=== PATIENT | male | born 1965 | race Caucasian/White ===

== ENCOUNTER → 2016-09-01 | Outpatient (CLI) | payer BC | LOC: RAD 07:33 | PROVIDERS: ATTEND Otolaryngology | DX: K22.5 Diverticulum of esophagus, acquired (principal); K44.9 Diaphragmatic hernia without obstruction or gangrene | CPT/HCPCS: 74210 ==

== ENCOUNTER → 2017-10-29 | Outpatient (CLI) | payer BC ==
--- NOTE | 2017-10-29 16:18 | RADIOLOGY REPORT (SQ) ---
EXAM DESCRIPTION: VENOUS BILATERAL LOWER COMPLETED DATE/TIME: 10/29/2017 3:25 pm REASON FOR STUDY: BLE EDEMA R60.9 EDEMA, UNSPECIFIED COMPARISON: None. TECHNIQUE: Dynamic and static anne scale and color images acquired of both lower extremity venous sy stems. Selected spectral images acquired with additional compression and augmentation maneuvers. Imag es stored on PACS. LIMITATIONS: None. FINDINGS: RIGHT LEG COMMON FEMORAL AND FEMORAL: Normal phasicity, compression and augmentation. No visualized echogenic m aterial on anne scale. No defects on color images. POPLITEAL: Normal compression and augmentation. No visualized echogenic material on anne scale. No de fects on color images. CALF VESSELS: Normal compression and augmentation. No visualized echogenic material on anne scale. No defects on color image. GSV AND SSV: Normal compression. No visualized echogenic material on anne scale. No defects on color images. ANY DEEP VENOUS INSUFFICIENCY: Not evaluated. ANY EVIDENCE OF POPLITEAL CYST: No. OTHER: No other significant finding. LEFT LEG COMMON FEMORAL AND FEMORAL: Normal phasicity, compression and augmentation. No visualized echogenic m aterial on anne scale. No defects on color images. POPLITEAL: Normal compression and augmentation. No visualized echogenic material on anne scale. No de fects on color images. CALF VESSELS: Normal compression and augmentation. No visualized echogenic material on anne scale. No defects on color images. GSV AND SSV: Normal compression. No visualized echogenic material on anne scale. No defects on color images. ANY DEEP VENOUS INSUFFICIENCY: Not evaluated. ANY EVIDENCE POPLITEAL CYST: No. OTHER: No other significant finding. IMPRESSION: NO EVIDENCE DVT OR SVT IN EITHER LEG. TECHNICAL DOCUMENTATION: JOB ID: [id number] [employer]- All Rights Reserved Reading location - IP/workstation name: [email or web address]
== END ==
LOC: SP 14:05
PROVIDERS: ATTEND Nurse Practitioner Family
DX: R60.0 Localized edema (principal)
CPT/HCPCS: 93970

== ENCOUNTER → 2019-03-07 | Outpatient (CLI) | payer BC ==
--- NOTE | 2019-03-07 18:15 | EKG REPORT ---
SEVERITY:- BORDERLINE ECG - SINUS RHYTHM LVH BY VOLTAGE BORDERLINE T ABNORMALITIES, INFERIOR LEADS : Confirmed by: Shaheed Pressley MD 07-Mar-2019 18:14:31
== END ==
LOC: OD 11:38
PROVIDERS: ATTEND Nurse Practitioner Family
DX: R42 Dizziness and giddiness (principal)
CPT/HCPCS: 93005; 93010

== ENCOUNTER → 2019-03-29 | Outpatient (CLI) | payer BC ==
[2019-03-29 11:11] LABS: HEMATOCRIT 44.1 % (37.9-51.0); HEMOGLOBIN 14.8 g/dL (13.5-17.0); MEAN CORPUSCULAR HEMOGLOBIN 28.3 pg (27.0-33.4); MEAN CORPUSCULAR HGB CONC 33.6 g/dL (32.0-36.0); MEAN CORPUSCULAR VOLUME 84 fl (80-97); PLATELET COUNT 253 10^3/uL (150-450); RED BLOOD COUNT 5.24 10^6/uL (4.35-5.55); RED CELL DISTRIBUTION WIDTH 13.9 % (11.5-14.0); WHITE BLOOD COUNT 7.5 10^3/uL (4.0-10.5)
[2019-03-29 11:42] LABS: ALBUMIN 4.2 g/dL (3.5-5.0); ALKALINE PHOSPHATASE 55 U/L (38-126); ANION GAP 8 (5-19); ASPARTATE AMINO TRANSFERASE 26 U/L (17-59); BILIRUBIN,DIRECT 0.1 mg/dL (0.0-0.4); BILIRUBIN,TOTAL 0.5 mg/dL (0.2-1.3); BLOOD UREA NITROGEN 17 mg/dL (7-20); CALCIUM 9.6 mg/dL (8.4-10.2); CARBON DIOXIDE 29 mmol/L (22-30); CHLORIDE 104 mmol/L (98-107); CHOLESTEROL 225.86 mg/dL (0-200); GLUCOSE 97 mg/dL (75-110); POTASSIUM 4.3 mmol/L (3.6-5.0); TOTAL PROTEIN 7.4 g/dL (6.3-8.2); TRIGLYCERIDES 304 mg/dL (<150)
[2019-03-29 11:53] LABS: DIRECT LDL 122 mg/dL (<100)
[2019-03-29 11:58] LABS: VLDL CHOLESTEROL 60.8 mg/dL (10-31)
== END ==
LOC: OD 10:33
PROVIDERS: ATTEND Physician Assistant
DX: Z13.220 Encounter for screening for lipoid disorders (principal); R42 Dizziness and giddiness; I10 Essential (primary) hypertension; R94.31 Abnormal electrocardiogram [ECG] [EKG]
CPT/HCPCS: 36415; 80048; 80061; 80076; 83735; 84443; 85027

== ENCOUNTER 2019-07-02 13:28 | Emergency (ER) | payer BC ==
[2019-07-02] MEDS ORDERED: ASPIRIN 325 MG TABLET PO ONE (16:09)
--- NOTE | 2019-07-02 16:11 | ER Document Report ---
ED Medical Screen (RME) - General Chief Complaint: Chest Pain Stated Complaint: CHEST PAIN Time Seen by Provider: 07/02/19 16:03 Primary Care Provider: DAMARIS BRASHER PA-C [Primary Care Provider] - Follow up as needed Notes: HPI: 54-year-old male with hypertension history presenting to the emergency department with 3 separate episodes of left chest discomfort and pressure with radiation into the jaw and neck. Patient states that he follows with Dr. Pressley, cardiology. States he had a stress test 2 to 3 weeks ago that was abnormal and states that they told him he needed to reschedule a nuclear stress test. States that they did prescribe him nitroglycerin which he took after each of the episodes of chest discomfort today which completely resolved the episodes after 1 nitroglycerin pill. No shortness of breath. No abdominal pain nausea vomiting. I have greeted and performed a rapid initial assessment of this patient. A comprehensive ED assessment and evaluation of the patient, analysis of test res ults and completion of the medical decision making process will be conducted by additional ED providers PHYSICAL EXAMINATION: GENERAL: Well-appearing, well-nourished and in no acute distress. HEAD: Atraumatic, normocephalic. EYES: sclera anicteric, conjunctiva are normal. ENT: Moist mucous membranes. NECK: Normal range of motion LUNGS: Normal work of breathing, clear to auscultation HEART: 2+ radial pulses bilaterally, regular rate and rhythm ABD: limited by positioning for exam in triage. EXTREMITIES: no pitting or edema. No cyanosis. NEUROLOGICAL: No focal neurological deficits. Moves all extremities spontaneously and on command. PSYCH: Normal mood, normal affect. SKIN: Warm, Dry, normal turgor, no rashes or lesions noted. EKG normal sinus rhythm without ectopy, slight flattening of the lateral T waves TRAVEL OUTSIDE OF THE [place] IN LAST 30 DAYS: No - Related Data Allergies/Adverse Reactions: No Known Allergies Allergy (Verified 07/02/19 15:58) Past Medical History - Past Medical History Cardiac Medical History: Reports: Hx Hypertension - Immunizations Hx Diphtheria, Pertussis, Tetanus Vaccination: No Physical Exam - Vital signs Vitals: Temp Pulse Resp BP Pulse Ox 97.9 F 63 20 121/75 97 07/02/19 13:34 07/02/19 13:34 07/02/19 13:34 07/02/19 13:34 07/02/19 13:34 Course - Vital Signs Vital signs: Temp Pulse Resp BP Pulse Ox 97.9 F 63 20 121/75 97 07/02/19 13:34 07/02/19 13:34 07/02/19 13:34 07/02/19 13:34 07/02/19 13:34 Doctor's Discharge - Discharge Referrals: DAMARIS BRASHER, PAKwesiC [Primary Care Provider] - Follow up as needed
--- NOTE | 2019-07-02 16:44 | RADIOLOGY REPORT (SQ) ---
EXAM DESCRIPTION: CHEST 2 VIEWS COMPLETED DATE/TIME: 07/02/2019 4:32 pm REASON FOR STUDY: chest pain COMPARISON: 07/02/2011 EXAM PARAMETERS: NUMBER OF VIEWS: two views TECHNIQUE: Digital Frontal and Lateral radiographic views of the chest acquired. RADIATION DOSE: NA LIMITATIONS: none FINDINGS: LUNGS AND PLEURA: No opacities, masses or pneumothorax. No pleural effusion. MEDIASTINUM AND HILAR STRUCTURES: No masses or contour abnormalities. HEART AND VASCULAR STRUCTURES: Heart normal size. No evidence for failure. BONES: No acute findings. HARDWARE: None in the chest. OTHER: No other significant finding. IMPRESSION: NO ACUTE RADIOGRAPHIC FINDING IN THE CHEST. TECHNICAL DOCUMENTATION: JOB ID: [id number] 2010 [employer] All Rights Reserved Reading location - IP/workstation name: [email or web address]
[2019-07-02 16:48] LABS: ABSOLUTE BASOPHILS # (AUTO) 0.1 10^3/uL (0.0-0.2); ABSOLUTE EOSINOPHILS # (AUTO) 0.1 10^3/uL (0.0-0.6); ABSOLUTE MONOCYTES (AUTO) 0.4 10^3/uL (0.1-1.4); ABSOLUTE NEUT (AUTO) 5.3 10^3/uL (1.7-8.2); BASOPHILS % (AUTO) 0.7 % (0-2); EOSINOPHILS % (AUTO) 1.3 % (0-6); HEMATOCRIT 42.2 % (37.9-51.0); HEMOGLOBIN 14.6 g/dL (13.5-17.0); LYMPHOCYTES % (AUTO) 25.6 % (13-45); MEAN CORPUSCULAR HEMOGLOBIN 29.1 pg (27.0-33.4); MEAN CORPUSCULAR HGB CONC 34.6 g/dL (32.0-36.0); MEAN CORPUSCULAR VOLUME 84 fl (80-97); MONOCYTES % (AUTO) 4.8 % (3-13); PLATELET COUNT 295 10^3/uL (150-450); RED BLOOD COUNT 5.03 10^6/uL (4.35-5.55); RED CELL DISTRIBUTION WIDTH 13.8 % (11.5-14.0); SEGMENTED NEUTROPHILS % (AUTO) 67.6 % (42-78); TOTAL CELLS COUNTED % (AUTO) 100 %; WHITE BLOOD COUNT 7.8 10^3/uL (4.0-10.5)
[2019-07-02 17:01] LABS: INTERNATIONAL RATION (INR) 0.92; PROTHROMBIN TIME 12.3 SEC (11.4-15.4)
[2019-07-02 17:10] LABS: ALBUMIN 4.4 g/dL (3.5-5.0); ALKALINE PHOSPHATASE 61 U/L (38-126); ANION GAP 10 (5-19); ASPARTATE AMINO TRANSFERASE 29 U/L (17-59); BILIRUBIN,DIRECT 0.3 mg/dL (0.0-0.4); BILIRUBIN,TOTAL 0.3 mg/dL (0.2-1.3); BLOOD UREA NITROGEN 21 mg/dL (7-20); CALCIUM 9.7 mg/dL (8.4-10.2); CARBON DIOXIDE 29 mmol/L (22-30); CHLORIDE 101 mmol/L (98-107); CREATINE KINASE 65 U/L (55-170); GLUCOSE 105 mg/dL (75-110); POTASSIUM 4.3 mmol/L (3.6-5.0)
[2019-07-02 17:22] LABS: CREATINE KINASE MB 1.05 ng/mL (<4.55); TROPONIN I < 0.012 ng/mL
--- NOTE | 2019-07-02 18:21 | EKG REPORT ---
SEVERITY:- ABNORMAL ECG - SINUS RHYTHM PROBABLE LVH WITH SECONDARY REPOL ABNRM : Confirmed by: Paula Lazar MD 02-Jul-2019 18:20:16
[2019-07-02 23:22] VITALS: BP 132/76
--- NOTE | 2019-07-03 00:17 | ER Document Report ---
ED Cardiac - General Chief Complaint: Chest Pain > 30 Stated Complaint: CHEST PAIN Time Seen by Provider: 07/02/19 16:03 Primary Care Provider: DAMARIS BRASHER PA-C [Primary Care Provider] - Follow up as needed Mode of Arrival: Ambulatory Information source: Patient Notes: 54-year-old male patient presenting to the emergency department chief complaint of chest pain that has resolved by the time of arrival. Patient reports he had a treadmill stress test done 2 to 3 weeks ago. He states that he was told this test showed some abnormalities so they have scheduled him for a Cardiolite stress test and also prescribed him some nitroglycerin. Patient reports he had 2 episodes of chest pain earlier today, he states that the pain radiated up into his jaw but he did not have any shortness of breath, diaphoresis or nausea. Patient reports he took 1 tablet of nitroglycerin which resolved his pain completely. TRAVEL OUTSIDE OF THE [place] IN LAST 30 DAYS: No - Related Data Allergies/Adverse Reactions: No Known Allergies Allergy (Verified 07/02/19 15:58) Past Medical History - Social History Smoking Status: Never Smoker Chew tobacco use (# tins/day): No Frequency of alcohol use: wine Drug Abuse: None Family History: Reviewed & Not Pertinent Patient has suicidal ideation: No Patient has homicidal ideation: No - Past Medical History Cardiac Medical History: Reports: Hx Hypertension - Immunizations Hx Diphtheria, Pertussis, Tetanus Vaccination: No Review of Systems - Review of Systems Cardiovascular: See HPI -: Yes All other systems reviewed and negative Physical Exam - Vital signs Vitals: Temp Pulse Resp BP Pulse Ox 97.9 F 63 20 121/75 97 07/02/19 13:34 07/02/19 13:34 07/02/19 13:34 07/02/19 13:34 07/02/19 13:34 - Notes Notes: PHYSICAL EXAMINATION: GENERAL: Well-appearing, well-nourished and in no acute distress. HEAD: Atraumatic, normocephalic. EYES: Pupils equal round and reactive to light, extraocular movements intact, sclera anicteric, conjunctiva are normal. ENT: Nares patent, oropharynx clear without exudates. Moist mucous membranes. NECK: Normal range of motion, supple without lymphadenopathy LUNGS: Breath sounds clear to auscultation bilaterally and equal. No wheezes rales or rhonchi. HEART: Regular rate and rhythm without murmurs ABDOMEN: Soft, nontender, nondistended abdomen. No guarding, no rebound. No masses appreciated. Musculoskeletal: Normal range of motion, no pitting or edema. No cyanosis. NEUROLOGICAL: Cranial nerves grossly intact. Normal speech, normal gait. Normal sensory, motor exams PSYCH: Normal mood, normal affect. SKIN: Warm, Dry, normal turgor, no rashes or lesions noted. Course - Re-evaluation Re-evalutation: 07/03/19 00:14 Laboratory 07/02/19 07/02/19 07/02/19 16:30 16:30 16:30 WBC 7.8 RBC 5.03 Hgb 14.6 Hct 42.2 MCV 84 MCH 29.1 MCHC 34.6 RDW 13.8 Plt Count 295 Lymph % (Auto) 25.6 Freestone % (Auto) 4.8 Eos % (Auto) 1.3 Baso % (Auto) 0.7 Absolute Neuts (auto) 5.3 Absolute Lymphs (auto) 2.0 Absolute Monos (auto) 0.4 Absolute Eos (auto) 0.1 Absolute Basos (auto) 0.1 Seg Neutrophils % 67.6 PT INR Sodium 139.5 Potassium 4.3 Chloride 101 Carbon Dioxide 29 Anion Gap 10 BUN 21 H Creatinine 0.83 Est GFR ( Amer) > 60 Est GFR (MDRD) Non-Af > 60 Glucose 105 Calcium 9.7 Total Bilirubin 0.3 Direct Bilirubin 0.3 Neonat Total Bilirubin Not Reportable Neonat Direct Bilirubin Not Reportable Neonat Indirect Bili Not Reportable AST 29 ALT 30 Alkaline Phosphatase 61 Creatine Kinase 65 CK-MB (CK-2) 1.05 Troponin I < 0.012 Total Protein 8.0 Albumin 4.4 07/02/19 07/02/19 16:30 20:17 WBC RBC Hgb Hct MCV MCH MCHC RDW Plt Count Lymph % (Auto) Freestone % (Auto) Eos % (Auto) Baso % (Auto) Absolute Neuts (auto) Absolute Lymphs (auto) Absolute Monos (auto) Absolute Eos (auto) Absolute Basos (auto) Seg Neutrophils % PT 12.3 INR 0.92 Sodium Potassium Chloride Carbon Dioxide Anion Gap BUN Creatinine Est GFR ( Amer) Est GFR (MDRD) Non-Af Glucose Calcium Total Bilirubin Direct Bilirubin Neonat Total Bilirubin Neonat Direct Bilirubin Neonat Indirect Bili AST ALT Alkaline Phosphatase Creatine Kinase CK-MB (CK-2) Troponin I < 0.012 Total Protein Albumin Chest X-Ray 07/02/19 16:04 IMPRESSION: NO ACUTE RADIOGRAPHIC FINDING IN THE CHEST. 0014-EKG reviewed by me, shows a sinus rhythm, rate 66, QTc 390, normal axis, no ST segment elevations or depressions to suggest ischemia. He has been chest pain-free since arrival to the emergency department. Called and spoke with on- call diagnostic radiologist, Dr. Mcdonald regarding this patient. Patient has been chest pain-free since 2:00 this afternoon which was prior to arrival. Patient's work- up today has been unremarkable. He does have a nuclear stress test scheduled for 07/14/2019. Dr. Mcdonald does not believe the patient would benefit at this point from inpatient treatment as patient has been chest pain-free. He will be discharged home at this time, I will encourage him to call Dr. Pressley in the mo rning to let him know he was seen in the emergency department. Patient verbalized understanding and agreement with this plan. - Vital Signs Vital signs: Temp Pulse Resp BP Pulse Ox 97.7 F 65 20 132/76 H 97 07/02/19 23:21 07/02/19 23:21 07/02/19 23:21 07/02/19 23:21 07/02/19 23:21 - Laboratory Result Diagrams: 07/02/19 16:30 07/02/19 16:30 Laboratory results interpreted by me: 07/02/19 16:30 BUN 21 H Discharge - Discharge Clinical Impression: Chest pain Qualifiers: Chest pain type: unspecified Qualified Code(s): R07.9 - Chest pain, unspecified Condition: Stable Disposition: HOME, SELF-CARE Additional Instructions: You were seen today for chest pain. The exact cause of your pain is unclear. However, based on your cardiac enzyme testing, chest x-ray, and EKG it does not appear that it is from an immediately life-threatening cause at this time. Although your testing here is normal is critical that you follow-up with your primary care physician for continued evaluation of this chest pain for completion of stress testing. I recommended you see your physician within the next 24-48 hours to be evaluated. Please return to emergency department immediately if you have worsening of your chest pain, shortness of breath, vomiting, become unable to exert yourself due to pain or difficulty breathing, you pass out, or have any pain that radiates into your arms, jaw, or back. Please also return if you have any additional symptoms that are concerning to you. Referrals: DAMARIS BRASHER PA-C [Primary Care Provider] - Follow up as needed
== END 2019-07-03 00:26 | disposition home or self-care (01) ==
LOC: ER 13:28
DX: R07.9 Chest pain, unspecified (principal); R68.84 Jaw pain; Z79.899 Other long term (current) drug therapy
CPT/HCPCS: 36415; 71046; 80053; 82550; 82553; 84484; 85025; 85610; 93005; 93010; 99285

== ENCOUNTER → 2019-08-30 | Outpatient (CLI) | payer BC ==
[2019-08-30 09:38] LABS: ALBUMIN 4.5 g/dL (3.5-5.0); ALKALINE PHOSPHATASE 71 U/L (38-126); ASPARTATE AMINO TRANSFERASE 34 U/L (17-59); BILIRUBIN,TOTAL 0.7 mg/dL (0.2-1.3); CHOLESTEROL 178.73 mg/dL (0-200); TOTAL PROTEIN 7.6 g/dL (6.3-8.2); TRIGLYCERIDES 228 mg/dL (<150)
[2019-08-30 09:50] LABS: DIRECT LDL 88 mg/dL (<100)
[2019-08-30 09:53] LABS: VLDL CHOLESTEROL 45.6 mg/dL (10-31)
== END ==
LOC: OD 08:06
PROVIDERS: ATTEND Physician Assistant
DX: E78.5 Hyperlipidemia, unspecified (principal); Z79.899 Other long term (current) drug therapy
CPT/HCPCS: 36415; 80061; 80076